=== PATIENT | female | born 1995 | race Caucasian/White ===

== ENCOUNTER 2019-11-07 07:19 | Day surgery (SDC) | payer OTHER ==
[2019-11-07 07:44] LABS: HCG UR QUAL NEGATIVE
[2019-11-07] MEDS ORDERED: BUPIVACAINE 0.5% PF 30 ML VIAL ONE ×2 (08:04→09:23)
--- NOTE | 2019-11-07 08:08 | ANESTHESIA ---
Pre-Anesthesia VS, & Labs - Diagnosis desires sterilization - Procedure Laparoscopic salpingectomy Vital Signs: Temp Pulse Resp BP Pulse Ox 36.9 C 82 16 124/90 H 100 11/07/19 07:45 11/07/19 07:45 11/07/19 07:45 11/07/19 07:45 11/07/19 07:45 Height 5 ft 4.17 in Weight (kg) 61.8 kg - NPO >8 hours - Is Patient ?: No Home Medications and Allergies Home Medications: Ambulatory Orders Escitalopram [Lexapro] 20 mg PO DAILY 11/01/19 Etonogestrel [Nexplanon] 68 mg SQ 11/01/19 Nitrofurantoin [Macrobid] 100 mg PO 11/01/19 Escitalopram [Lexapro] 20 mg PO DAILY 11/01/19 Etonogestrel [Nexplanon] 68 mg SQ 11/01/19 Nitrofurantoin [Macrobid] 100 mg PO 11/01/19 Allergies/Adverse Reactions: Allergies Allergy/AdvReac Type Severity Reaction Status Date / Time No Known Drug Allergies Allergy Verified 11/01/19 13:28 Anes History & Medical History - Anesthetic History Anesthesia Complications: reports: No previous complications Family history of Anesthesia Complications: Denies Family history of Malignant Hyperthermia: Denies - Medical History Cardiovascular: reports: None Pulmonary: reports: None Gastrointestinal: reports: None Urinary: reports: None Musculoskeletal: reports: Scoliosis Endocrine/Autoimmune: reports: None Skin: reports: None - Surgical History General: Other Gynecologic: Breast implants Exam General: Alert, Oriented x3, Cooperative, No acute distress Dental: WNL Mouth Openin Fingerbreadth Neck Mobility: Normal Mallampati classification: II Respiratory: Lungs clear, Normal breath sounds, No respiratory distress, No accessory muscle use Cardiovascular: Regular rate, Normal S1, Normal S2, No murmurs Plan Anesthesia Type: General Consent for Procedure(s) Verified and Reviewed: Yes Code Status: Attempt Resuscitation ASA classification: 1-Healthy patient Is this case an emergency?: No
[2019-11-07] MEDS ORDERED: LACTATED RINGERS 1,000 ML IV ONE ×2 (08:11→10:05)
[2019-11-07] MEDS ORDERED: METOCLOPRAMIDE 10 MG/2 ML VIAL IVP PRN (08:18)
[2019-11-07] MEDS ORDERED: ePHEDrine 50 MG/ML VIAL IVP PRN (08:18)
[2019-11-07] MEDS ORDERED: ONDANSETRON 4 MG/2 ML VIAL IVP PRN (08:18)
[2019-11-07] MEDS ORDERED: MORPHINE 2 MG/ML CARPUJECT IVP PRN (08:18)
[2019-11-07] MEDS ORDERED: HYDROmorphone 0.5 MG/0.5 ML SYRINGE IVP PRN (08:18)
[2019-11-07] MEDS ORDERED: ATROPINE ABBOJECT 1 MG/10 ML SYRINGE IVP PRN (08:18)
[2019-11-07] MEDS ORDERED: fentaNYL 100 MCG/2 ML VIAL IVP PRN (08:18)
[2019-11-07] MEDS ORDERED: NALOXONE 0.4 MG/ML VIAL IVP PRN (08:18)
[2019-11-07] MEDS ORDERED: DEXAMETHASONE 4 MG/ML VIAL IVP ONE (08:45)
[2019-11-07] MEDS ORDERED: fentaNYL 100 MCG/2 ML VIAL IVP ONE (08:45)
[2019-11-07] MEDS ORDERED: PROPOFOL 200 MG/20 ML VIAL IVP ONE (08:45)
[2019-11-07] MEDS ORDERED: KETOROLAC 30 MG/ML VIAL IVP ONE (08:45)
[2019-11-07] MEDS ORDERED: ONDANSETRON 4 MG/2 ML VIAL IVP ONE (08:45)
[2019-11-07] MEDS ORDERED: LIDOCAINE-MPF 2% 5 ML VIAL IM ONE (08:45)
[2019-11-07] MEDS ORDERED: ROCURONIUM 50 MG/5 ML VIAL IVP ONE (08:45)
[2019-11-07] MEDS ORDERED: LACTATED RINGERS 1,000 ML IV SCH (09:00)
[2019-11-07] MEDS ORDERED: BUPIVACAINE 0.5% PF 30 ML VIAL INFIL ONE (09:30)
[2019-11-07] MEDS ORDERED: HYDROcod/ACETAM 10 MG/325 MG TABLET PO PRN (10:06)
--- NOTE | 2019-11-07 10:10 | OPERATIVE REPORT ---
Operative Report - General Procedure Date: 11/07/19 Planned Procedure: Laparoscopic bilateral salpingectomies Pre-Op Diagnosis: Undesired fertility Procedure Performed: Same as above Post Op Diagnosis: Same as above - Procedure Note Primary Surgeon: Gabriel Secondary Surgeon: Junior Anesthesia Provider: Glen Anesthesia Technique: General ET tube Pathology: Portions of both fallopian tubes IV Fluids (mL): 500 Estimated Blood Loss (mL): 5 Indications: Undesired fertility Findings: Exam under anesthesia The uterus was of normal size, shape, and consistency. The adnexa were benign. Operative findings The uterus, tubes, and ovaries were all within normal limits the anterior and posterior cul-de-sacs, liver edge, gallbladder, appendix, and stomach were all within normal limits. There was one adhesive band in the right lower quadrant from the right colon to the right lower abdominal wall. Complications: None - Other Other Information/Narrative: Procedure: The patient was taken to the operating room, where general endotracheal anesthesia was administered without difficulty. She was then positioned in the low dorsal lithotomy position with her lower extremities in Yellow Fin stirrups. Vagina, perineum, and abdomen were then prepped and draped in a sterile fashion, and an in-an-out catheterization was performed. Procedure Time-Out was then performed. A sterile bivalve speculum was then inserted into the vagina. A Hulka tenaculum was placed on the anterior lip of the cervix. The speculum was then removed from the vagina. Attention was then turned to the laparoscopy. 0.5% Marcaine was injected at Bazan's point, then a 7-mm horizontal skin incision made. Once 2 L of gas wa s instilled through a Verress needle, a 0-degree, 5 mm laparoscope was inserted into a 5 mm trocar and passed through the anterior layers of the abdominal wall using Optiview technique. The abdomen was visualized, then 2 additional ports placed in the right and left lower quadrants, first injecting local anesthetic, then placing 5 mm ports. The patient was placed into Trendelenberg and bowel swept out of the cul-de-sac. The right distal fallopian tube was then grasped and pulled anteriorly and superiorly. The tubo-ovarian ligament was then crossclamped, cauterized, and cut using the Ligasure, then the mesosalpinx was crossclamped, cauterized, and cut, completely the right fallopian tube from the uterus at the cornu. The right fallopian tube was then removed from the abdomen. The left distal fallopian tube was then grasped and pulled anteriorly and superiorly. The tubo-ovarian pedicle was then crossclamped, cauterized, and cut, the distal left fallopian tube from the left ovary. The mesosalpinx was then serially cauterized and cut until the cornu was reached, then the fallopian tube was crossclamped, cauterized, and cut. The surgical sites appeared hemostatic. The left fallopian tube was removed from the abdomen. At this point the laparoscopy was deemed complete, and all trochars were removed from the abdomen. The carbon dioxide gas was then allowed to escape. The incisions were then closed with 4-0 Monocryl in a subcuticular fashion followed by Dermabond skin adhesive. The tenaculum was then removed from the posterior lip of the cervix. The sterile bivalve speculum was then reinserted to ensure that the tenaculum site was hemostatic. No bleeding was noted, and the speculum was then removed. At this point the procedure was deemed complete. The patient was then replaced supine, awakened, extubated, and transferred to the PACU in stable condition.
[2019-11-07] MEDS ORDERED: ONDANSETRON 4 MG/2 ML VIAL ONE (10:34)
[2019-11-07] MEDS ORDERED: METOCLOPRAMIDE 10 MG/2 ML VIAL ONE (10:35)
--- NOTE | 2019-11-07 10:42 | ANESTHESIA POST OP EVALUATION ---
Anesthesia Post Eval - Post Anesthesia Eval Vitals: Last Vital Signs Temp 36.5 C 11/07/19 10:30 Pulse 71 11/07/19 10:35 Resp 14 11/07/19 10:35 BP 125/85 H 11/07/19 10:35 Pulse Ox 100 11/07/19 10:35 CV Function Including HR & BP: positive: Stable Pain Control: positive: Satisfactory Nausea & Vomiting: positive: Negative Mental Status: positive: Baseline Respiratory Status: Airway Patent Hydration Status: Satisfactory Anesthesia Complications: positive: None
[2019-11-07 11:06] VITALS: BP 114/78
== END 2019-11-07 07:20 | disposition home or self-care (01) ==
LOC: SDS 07:19
PROVIDERS: ATTEND Obstetrics & Gynecology
PROC: 0UT74ZZ Resection of Bilateral Fallopian Tubes, Percutaneous Endoscopic Approach (ICD-10-PCS; principal; 2019-11-07 08:45)
DX: Z30.2 Encounter for sterilization (principal)
CPT/HCPCS: 81025

== ENCOUNTER 2021-09-15 15:28 | Emergency (ER) | payer OTHER ==
[2021-09-15] MEDS ORDERED: PROPOFOL 200 MG/20 ML VIAL IVP STA (16:45)
[2021-09-15] MEDS ORDERED: SODIUM CHLORIDE 0.9% 1,000 ML IV STA (16:45)
--- NOTE | 2021-09-15 17:21 | ED Physician Documentation ---
History of Present Illness - Stated complaint Stated Complaint: FEMALE - Chief complaint Chief Complaint: General - History obtained from History obtained from: Patient - History of Present Illness Timing: Today Pain level max: 0 Pain level now: 0 - Additonal information Additional information: Patient is a 25-year-old female who presents to the emergency department with a rectal foreign body. This occurred today. It is a small vibrator. Nothing makes it better or worse. Review of Systems Constitutional: denies: Fever Respiratory: denies: Cough GI: denies: Vomiting, Diarrhea : denies: Now EGA Skin: denies: Rash Musculoskeletal: denies: Neck pain, Back pain PD PAST MEDICAL HISTORY - Past Medical History Cardiovascular: None Respiratory: None Endocrine/Autoimmune: None GI: None : None HEENT: None Psych: Other Musculoskeletal: Scoliosis Derm: None - Past Surgical History General: Other /FO[employer]ER: Breast implants - Present Medications Home Medications: Ambulatory Orders Medication Instructions Recorded Confirmed Escitalopram [Lexapro] 20 mg PO DAILY 11/01/19 11/07/19 Etonogestrel [Nexplanon] 68 mg SQ 11/01/19 Nitrofurantoin [Macrobid] 100 mg PO 11/01/19 - Allergies Allergies/Adverse Reactions: Allergies Allergy/AdvReac Type Severity Reaction Status Date / Time No Known Drug Allergies Allergy Verified 09/15/21 15:38 PD ED PE NORMAL - Vitals Vital signs reviewed: Yes - General General: Alert and oriented X 3, No acute distress - HEENT HEENT: Moist mucous membranes - Neck Neck: Supple, no meningeal sign - Cardiac Cardiac: RRR - Respiratory Respiratory: No respiratory distress, Clear bilaterally - Abdomen Abdomen: Soft, Non tender, Non distended - Female Female : Drier present (DEVYN [place]) - Rectal Rectal: Other (Digital exam reveals a small round vibrator in the rectum.) - Derm Derm: Warm and dry, No rash - Extremities Extremities: No edema - Neuro Neuro: Alert and oriented X 3 Results - Vitals Vitals: Vital Signs - 24 hr 09/15/21 09/15/21 09/15/21 15:37 17:00 17:10 Temperature 37.1 C Heart Rate 72 90 93 Respiratory 14 18 16 Rate Blood Pressure 141/83 H 136/100 H 113/101 H O2 Saturation 100 100 100 09/15/21 09/15/21 09/15/21 17:15 17:20 17:25 Temperature Heart Rate 89 84 75 Respiratory 18 20 17 Rate Blood Pressure 125/86 H 102/85 H 126/93 H O2 Saturation 100 100 100 09/15/21 18:29 Temperature Heart Rate 70 Respiratory 14 Rate Blood Pressure O2 Saturation Oxygen O2 Source Room air Procedures - FB removal FB location: Rectal Removal method: Other (digital removal) FB removal aftercare: No complications, Patient tolerated well, Removed successfully - Procedural sedation Sedation prep: Informed consent, Time out completed, Last meal (6 hrs [employer]), ASA 1 - healthy, IV O2 monitor, ET CO2 monitor, RT present Sedation Medications: propofol Mallampati classification: II Patient status during sedation: Drowsy, Vitals remained stable, Maintained airway Sedation recovery: Recovered uneventfully Time in sedation (Minutes): 15 PD MEDICAL DECISION MAKING - ED course Complexity details: considered differential, d/w patient ED course: The rectal foreign body was removed. Patient tolerated well. No complications. Patient counseled regarding signs and symptoms for which I believe and urgent re-evaluation would be necessary. Patient with good understanding of and agreement to plan and is comfortable going home at this time This document was made in part using voice recognition software. While efforts are made to proofread this document, sound alike and grammatical errors may occur. Departure - Departure Disposition: 01 Home, Self Care Clinical Impression: Rectal foreign body Qualifiers: Encounter type: initial encounter Qualified Code(s): T18.5XXA - Foreign body in anus and rectum, initial encounter Condition: Good Instructions: Sitz Bath, ED Foreign Body Rectal Removed Adlt Follow-Up: your,doctor as needed [Other] Comments: Do not drive or operate heavy machinery today. The foreign body was removed. Return if you worsen. Sitz bath may help for comfort tonight. Forms: Activity restrictions Discharge Date/Time: 09/15/21 17:45
[2021-09-15 17:31] VITALS: BP 126/93
== END 2021-09-15 17:45 | disposition home or self-care (01) ==
LOC: ED 15:28
DX: T18.5XXA Foreign body in anus and rectum, initial encounter (principal)
CPT/HCPCS: 94770; 99152; 99282; 99285

== ENCOUNTER 2021-09-21 08:00 | Outpatient (CLI) | payer OTHER ==
[2021-09-21 21:30] LABS: BACTERIAL VAGINOSIS DNA POSITIVE (NEGATIVE); CANDIDA GLABRATA DNA NEGATIVE (NEGATIVE); CANDIDA GROUP DNA NEGATIVE (NEGATIVE); CANDIDA KRUSEI DNA NEGATIVE (NEGATIVE); TRICHOMONAS VAGINALIS DNA NEGATIVE (NEGATIVE)
== END 2021-09-21 23:59 | disposition home or self-care (01) ==
LOC: LAB.N 08:00
PROVIDERS: ATTEND Family Medicine
DX: N89.8 Other specified noninflammatory disorders of vagina (principal)
CPT/HCPCS: 81514